=== PATIENT | male | born 1965 | race Caucasian/White ===

== ENCOUNTER 2018-02-14 15:45 | Emergency (ER) | payer BC ==
[2018-02-14 16:10] VITALS: BP 151/91
--- NOTE | 2018-02-14 18:24 | UC ---
Skin Complaint HPI - HPI Summary HPI Summary: 53-year-old male presents with onset of redness, tenderness, and swelling to his dorsal right foot at the base of the fourth and fifth toes yesterday. States the redness and swelling has progressively worsened over the day today. He does recall 4 days ago inserted his barefoot into a boot have had some broken pieces of tempered glass although denies any known cuts at that time. Denies fever, chills, joint pain, decreased range of motion, numbness or tingling. - History of Current Complaint Chief Complaint: UCSkin Time Seen by Provider: 02/14/18 17:59 Stated Complaint: RIGHT FOOT - SKIN Hx Obtained From: Patient Pain Intensity: 6 - Allergy/Home Medications Allergies/Adverse Reactions: Allergies Allergy/AdvReac Type Severity Reaction Status Date / Time No Known Allergies Allergy Verified 02/14/18 16:07 PMH/Surg Hx/FS Hx/Imm Hx Previously Healthy: Yes Cardiovascular History: Hypertension - Surgical History Surgical History: None - Family History Known Family History: Positive: Cardiac Disease, Hypertension Negative: Diabetes - Social History Occupation: Employed Full-time Lives: With Family Alcohol Use: Rare Substance Use Type: None Smoking Status (MU): Never Smoked Tobacco - Immunization History Most Recent Tetanus Shot: states up to date Review of Systems All Other Systems Reviewed And Are Negative: Yes Constitutional: Negative: Fever, Chills Skin: Positive: Other - See HPI Motor: Negative: Weakness Neurovascular: Negative: Decreased Sensation Musculoskeletal: Negative: Arthralgia, Decreased ROM Is Patient Immunocompromised?: No Physical Exam - Summary Physical Exam Summary: GENERAL APPEARANCE: Well developed, well nourished, alert and cooperative, and appears to be in no acute distress. CARDIAC: Normal S1 and S2. No S3, S4 or murmurs. Rhythm is regular. There is no peripheral edema, cyanosis or pallor. Extremities are warm and well perfused. Capillary refill is less than 2 seconds. LUNGS: Clear to auscultation and percussion without rales, rhonchi, wheezing or diminished breath sounds. ABDOMEN: Positive bowel sounds. Soft, nondistended, nontender. No guarding or rebound. No masses or hepatosplenomegally. MUSKULOSKELETAL: ROM intact to right ankle and toes. No joint erythema or tenderness. Normal muscular development. Normal gait. Peripheral pulses intact. NEUROLOGICAL: Strength and sensation symmetric and intact. SKIN: 1-2 cm area of erythema and mild swelling to dorsal right foot at base of 4th and 5th toes. No induration or fluctuance note. No open lesions noted. Triage Information Reviewed: Yes Vital Signs: Initial Vital Signs Temp 97.9 F 02/14/18 16:05 Pulse 70 02/14/18 16:05 Resp 18 02/14/18 16:05 BP 151/91 02/14/18 16:05 Pulse Ox 100 02/14/18 16:05 Vital Signs Reviewed: Yes Diagnostics - Radiology No standard instances Radiology Interpretation Completed By: ED Physician Summary of Radiographic Findings: Normal right foot. No evidence of FB. Course/Dx - Course Course Of Treatment: 53-year-old male presents with onset of redness, tenderness , and swelling to his dorsal right foot at the base of the fourth and fifth toes yesterday. States the redness and swelling has progressively worsened over the day today. He does recall 4 days ago inserted his barefoot into a boot have had some broken pieces of tempered glass although denies any known cuts at that time. Denies fever, chills, joint pain, decreased range of motion , numbness or tingling. Afebrile. Vital signs stable. Exam revealed a 1-2 cm area of erythema to the dorsal aspect of his right foot right at the base of the fourth and fifth toes. No induration or fluctuance noted. Two-view x-ray of the right foot did not reveal any evidence of foreign body. Will treat for a localized skin infection with cephalexin 500 mg twice a day 7 days. Recommend soaking the foot 3-4 times a day the warm Epsom salt solution. Is to follow-up with his primary care provider if no improvement in symptoms. Warning symptoms were reviewed with the patient. Verbalizes understanding and agrees supportive care. - Differential Diagnoses - Skin Complaint Differential Diagnoses: Abscess, Cellulitis, Foreign Body, MRSA - Diagnoses Provider Diagnosis: Localized bacterial skin infection Discharge - Sign-Out/Discharge Documenting (check all that apply): Patient Departure All imaging exams completed and their final reports reviewed: No - Discharge Plan Condition: Stable Disposition: HOME Prescriptions: Cephalexin CAP* [Keflex 500 CAP*] 500 mg PO TID #21 cap Patient Education Materials: Cellulitis (ED) Referrals: No Primary Care Phys,NOPCP [Primary Care Provider] - Additional Instructions: The x-ray performed in the clinic today showed no evidence of an foreign body. I suspect that you have a localized bacterial skin infection. Start cephalexin 500 mg 1 capsule orally three times a day for 7 days. Soak the foot in warm water and Epsom salt solution 3-4 times a day. Follow up with your primary care provider in 5 days if no improvement. Seek immediate medical attention in the emergency room if you develop fever greater than 100.5 F, have increased redness, swelling, pain, or any worsening of symptoms. - Billing Disposition and Condition Condition: STABLE Disposition: Home - Attestation Statements Provider Attestation: I was available for consult. This patient was seen by the AMAYA. The patient was not presented to, seen by, or examined by me. -Marcio
--- NOTE | 2018-02-15 07:48 | UC ---
- Progress Note Progress Note: Patient Name: HARDIK GARCIA Medical Record#: [id number] Ordering Physician: David Nix NP Acct.#: [id number] : 1965 Age: 53 Sex: M Location: [facility] Exam Date: 02/14/181802 ADM Status: DEP ER Order Information: FOOT RIGHT 2 VWS Accession Number: [id number] CPT: 23994 INDICATION: Possible foreign body between fourth and fifth toes. TECHNIQUE: 2 views of the right foot were obtained. FINDINGS: The bones are normal alignment. No fracture is seen. No radiopaque foreign body is seen. Joint spaces appear maintained. IMPRESSION: NO RADIOPAQUE FOREIGN BODY IS SEEN. R0 Preliminary Imaging Read R0 <Electronically signed by Tj Morrow MD in OV> 02/15/18703 Dictated By: Tj Mororw MD Dictated Date/Time: 02/15/18703 Transcribed Date/Time: 02/15/18702 Copy to: CC:David Nix NP; Luisa Dobbins MD; No Primary Care Phys,NOPCP Imaging - [facility] [address] [address] ph ([phone]) ph ([phone]) ph ([phone]) This report is only to be considered final once signed by the Provider(s) as displayed in the "<Electronically Signed by >" field (s). Absence of a signature indicates the report is in a draft status and still needs to be finalized. In the event this document was created by someone other than the signing Provider, the individual initiating the document will be listed in the "Entered by:" or "Dictated by:" noland. 1 of 1 Course/Dx - Diagnoses Provider Diagnoses: Localized bacterial skin infection Discharge - Sign-Out/Discharge Documenting (check all that apply): Post-Discharge Follow Up All imaging exams completed and their final reports reviewed: Yes - Discharge Plan Condition: Stable Disposition: HOME Prescriptions: Cephalexin CAP* [Keflex 500 CAP*] 500 mg PO TID #21 cap Patient Education Materials: Cellulitis (ED) Referrals: No Primary Care Phys,NOPCP [Primary Care Provider] - Additional Instructions: The x-ray performed in the clinic today showed no evidence of an foreign body. I suspect that you have a localized bacterial skin infection. Start cephalexin 500 mg 1 capsule orally three times a day for 7 days. Soak the foot in warm water and Epsom salt solution 3-4 times a day. Follow up with your primary care provider in 5 days if no improvement. Seek immediate medical attention in the emergency room if you develop fever greater than 100.5 F, have increased redness, swelling, pain, or any worsening of symptoms. - Billing Disposition and Condition Condition: STABLE Disposition: Home
== END 2018-02-14 18:31 | disposition home or self-care (01) ==
LOC: UCCORT 15:45
DX: L08.89 Other specified local infections of the skin and subcutaneous tissue (principal); B96.89 Other specified bacterial agents as the cause of diseases classified elsewhere; I10 Essential (primary) hypertension
CPT/HCPCS: 99212; G0463